=== PATIENT | female | born 1980 | race Caucasian/White ===

== ENCOUNTER 2019-09-29 10:19 | Emergency (ER) | payer OTHER ==
[~2019-09-29] VITALS: Ht 154.9 cm; Wt 88.0 kg
[2019-09-29 10:23] VITALS: BP 133/84
--- NOTE | 2019-09-29 10:51 | NUR ---
PT SENT HERE FROM [facility] [employer] [facility], "TO HAVE METHOTREXATE SHOT" PT STATES SHE ALREADY HAD A PELVIC EXAM AT MD OFFICE. PT DENIES ABD PAIN.
[2019-09-29 12:39] LABS: BASOPHILS # (AUTO) 0.05 x10^3/uL (0-0.1); BASOPHILS % (AUTO) 1 % (0-1); EOSINOPHILS # (AUTO) 0.38 x10^3/uL (0-0.4); EOSINOPHILS % (AUTO) 4 % (1-7); LYMPHOCYTES # (AUTO) 1.63 x10^3/uL (1-3.4); LYMPHOCYTES % (AUTO) 16 % (22-44); MD NO; MEAN CORPUSCULAR HEMOGLOBIN 29.2 pg (27.0-34.8); MEAN CORPUSCULAR HGB CONC 33.2 g/dL (32.4-35.8); MEAN CORPUSCULAR VOLUME 88.1 fL (80-100); MEAN PLATELET VOLUME 9.3 fL (7.4-10.4); MONOCYTES # (AUTO) 0.69 x10^3/uL (0.2-0.8); MONOCYTES % (AUTO) 7 % (2-9); NEUTROPHILS # (AUTO) 7.47 x10^3/uL (1.8-6.8); NEUTROPHILS % (AUTO) 73 % (42-75); PLATELET COUNT 320 x10^3/uL (130-400); RED BLOOD COUNT 5.12 x10^6/uL (3.82-5.3); RED CELL DISTRIBUTION WIDTH 12.8 % (9.6-15.2)
[2019-09-29 12:51] LABS: ALANINE AMINOTRANSFERASE 20 U/L (12-78); ALBUMIN 4.2 g/dL (3.4-5.0); ANION GAP 6 mmol/L (5-15); CALCIUM 9.5 mg/dL (8.5-10.1); CHLORIDE 106 mmol/L (98-107); CREATININE 0.95 mg/dL (0.55-1.02)
[2019-09-29 12:55] LABS: ALKALINE PHOSPHATASE 84 U/L (45-117); BILIRUBIN,TOTAL 0.3 mg/dL (0.2-1.0); TOTAL PROTEIN 8.4 g/dL (6.4-8.2)
--- NOTE | 2019-09-29 13:09 | NUR ---
SPOKE WITH REGARDING ORDER FOR METHOTREXATE, APPARENTLY WE ARE AWAITING A FAX FROM DR NIXON OFFICE. CALL TO PTS OFFICE TO EXPEDITE FA, SPOKE TO OFFICE STAFF
[2019-09-29] MEDS ORDERED: METHOTREXATE IM ONE (13:30)
--- NOTE | 2019-09-29 13:45 | NUR ---
BREAK RN: CALLED DANIEL BOSTON, [employer] MANAGER ON ONCOLOGY FOR ASSISTANCE WITH MEDICATION. SHE WILL COME DOWN AND ADMINISTER.
--- NOTE | 2019-09-29 15:16 | NUR ---
ONC RNS ADMIN MED, WAIT FOR 20MIN TO VERIFY NO ADVERSE REACTION PER RN RECOMMENATION, PT TO THEN DC
--- NOTE | 2019-09-29 15:23 | NUR ---
PT LEFT WITHOUT THIS RNS ASSESSMENT OF INJECTION SITE. PT LEFT WITHOUT ALL BELONGINGS
== END 2019-09-29 15:32 | disposition home or self-care (01) ==
LOC: ED 12:24
DX: O02.1 Missed abortion (principal); Z32.01 Encounter for pregnancy test, result positive
CPT/HCPCS: 36415; 80053; 84702; 85025; 99283; J9250

== ENCOUNTER 2019-12-09 13:11 | Emergency (ER) | payer OTHER ==
[~2019-12-09] VITALS: Ht 157.5 cm; Wt 81.7 kg
--- NOTE | 2019-12-09 13:54 | NUR ---
pa in room for assessment. pt denies pain. vss. call lopez in reach. as
[2019-12-09 14:14] LABS: BASOPHILS # (AUTO) 0.05 x10^3/uL (0-0.1); BASOPHILS % (AUTO) 1 % (0-1); EOSINOPHILS # (AUTO) 0.24 x10^3/uL (0-0.4); EOSINOPHILS % (AUTO) 2 % (1-7); LYMPHOCYTES # (AUTO) 1.47 x10^3/uL (1-3.4); LYMPHOCYTES % (AUTO) 14 % (22-44); MD NO; MEAN CORPUSCULAR HEMOGLOBIN 28.2 pg (27.0-34.8); MEAN CORPUSCULAR HGB CONC 33.2 g/dL (32.4-35.8); MEAN CORPUSCULAR VOLUME 85.1 fL (80-100); MEAN PLATELET VOLUME 9.4 fL (7.4-10.4); MONOCYTES # (AUTO) 0.58 x10^3/uL (0.2-0.8); MONOCYTES % (AUTO) 6 % (2-9); NEUTROPHILS # (AUTO) 8.04 x10^3/uL (1.8-6.8); NEUTROPHILS % (AUTO) 77 % (42-75); PLATELET COUNT 350 x10^3/uL (130-400); RED BLOOD COUNT 4.86 x10^6/uL (3.82-5.3); RED CELL DISTRIBUTION WIDTH 14.2 % (9.6-15.2)
--- NOTE | 2019-12-09 14:17 | NUR ---
pt to us. stable. as
[2019-12-09 14:24] LABS: ALBUMIN 3.5 g/dL (3.4-5.0); ANION GAP 8 mmol/L (5-15); CALCIUM 9.1 mg/dL (8.5-10.1); CHLORIDE 109 mmol/L (98-107)
[2019-12-09 14:29] LABS: CREATININE 0.69 mg/dL (0.55-1.02)
--- NOTE | 2019-12-09 14:49 | NUR ---
pt back from us. us shows no gestational sac. recheck. as
[2019-12-09 15:22] VITALS: BP 116/67
== END 2019-12-09 15:23 | disposition home or self-care (01) ==
LOC: ED 15:20
DX: O03.9 Complete or unspecified spontaneous abortion without complication (principal)
CPT/HCPCS: 36415; 76801; 80048; 82040; 84702; 85025; 99284

== ENCOUNTER 2020-07-09 07:57 | Emergency (ER) | payer OTHER ==
[~2020-07-09] VITALS: Ht 154.9 cm; Wt 86.6 kg
--- NOTE | 2020-07-09 08:04 | NUR ---
GENERAL ACCOUNTING CLERK: EKG DONE IN TRIAGE
--- NOTE | 2020-07-09 08:21 | NUR ---
TELEPHONE CALL TO OB, STATES THEY WILL COME DOWN TO LISTEN TO HEART TONES.
[2020-07-09] MEDS ORDERED: DIPHENHYDRAMINE 25 MG CAPSULE PO ONE (08:30)
--- NOTE | 2020-07-09 08:36 | NUR ---
THEA WESTFALL RN IN ROOM FOR HEART TONES. LAB AT BEDSIDE.
[2020-07-09 08:42] VITALS: BP 121/72
--- NOTE | 2020-07-09 08:45 | NUR ---
XR IN ROOM.
[2020-07-09 08:53] LABS: BASOPHILS % (AUTO) 1 % (0-1); EOSINOPHILS % (AUTO) 2 % (1-7); LYMPHOCYTES % (AUTO) 16 % (22-44); MEAN CORPUSCULAR HEMOGLOBIN 29.1 pg (27.0-34.8); MEAN CORPUSCULAR HGB CONC 33.3 g/dL (32.4-35.8); MEAN PLATELET VOLUME 9.1 fL (7.4-10.4); MONOCYTES % (AUTO) 6 % (2-9); NEUTROPHILS % (AUTO) 76 % (42-75); PLATELET COUNT 241 x10^3/uL (130-400)
[2020-07-09 08:56] LABS: MD NO
--- NOTE | 2020-07-09 08:56 | NUR ---
PER THEA OB RN HEART TONES AUSCULTATED, LT SIDE MIDLINE HR APPROX 150, RLQ HR APPOX 130. UPDATED.
--- NOTE | 2020-07-09 08:58 | NUR ---
XR IN ROOM AGAIN.
[2020-07-09 09:04] LABS: ALBUMIN 2.9 g/dL (3.4-5.0); ANION GAP 5 mmol/L (5-15); CALCIUM 8.9 mg/dL (8.5-10.1); CHLORIDE 112 mmol/L (98-107)
--- NOTE | 2020-07-09 09:30 | NUR ---
PT AMBULATED TO THE BR W/ A STEADY GAIT.
--- NOTE | 2020-07-09 09:45 | NUR ---
ALL TESTS RESULTED. PT IS UP FOR RECHECK AT THIS TIME.
--- NOTE | 2020-07-09 09:57 | NUR ---
Patient given discharge instructions and they have confirmed that they understand the instructions. Patient ambulatory with steady gait.
== END 2020-07-09 10:20 | disposition home or self-care (01) ==
LOC: ED 09:10
DX: O26.892 Other specified pregnancy related conditions, second trimester (principal); R06.00 Dyspnea, unspecified; F41.1 Generalized anxiety disorder; R07.89 Other chest pain; R00.0 Tachycardia, unspecified; Z3A.17 17 weeks gestation of pregnancy
CPT/HCPCS: 36415; 71045; 80048; 82040; 85025; 93005; 99285; Q0163

== ENCOUNTER 2020-10-02 11:18 | Outpatient (CLI) | payer OTHER ==
[~2020-10-02] VITALS: Ht 154.9 cm; Wt 91.3 kg
[2020-10-02 11:52] VITALS: BP 127/71
[2020-10-02] MEDS ORDERED: PREN1TAB10 PO (12:13)
[2020-10-02] MEDS ORDERED: ASPI-515 PO (12:13)
== END 2020-10-02 12:37 | disposition home or self-care (01) ==
LOC: LDOP 11:18
PROVIDERS: ATTEND Obstetrics & Gynecology
DX: O09.893 Supervision of other high risk pregnancies, third trimester (principal); Z3A.29 29 weeks gestation of pregnancy
CPT/HCPCS: 59025

== ENCOUNTER 2020-11-24 06:03 | Inpatient (IN) | payer OTHER ==
[~2020-11-24] VITALS: Ht 154.9 cm; Wt 95.5 kg
[~2020-11-24 06:03] MED LIST: ASPI-963 PO; PREN1TAB10 PO
[2020-11-24] MEDS ORDERED: ONDANSETRON 2MG/ML, 2ML IVPush PRN (07:00)
[2020-11-24] MEDS ORDERED: OXYTOCIN 30U/ 0.9% NaCL 500ML 500 ML IV ONE (07:00)
[2020-11-24] MEDS ORDERED: FENTANYL PF 100 MCG/2ML IVPush PRN (07:00)
[2020-11-24] MEDS ORDERED: FENTANYL PF 100 MCG/2ML IV PRN (07:00)
[2020-11-24] MEDS ORDERED: TERBUTALINE 1 MG/ML, 1ML SQ PRN (07:00)
[2020-11-24] MEDS ORDERED: OXYTOCIN 30U/ 0.9% NaCL 500ML 500 ML IV PRN (07:00)
[2020-11-24] MEDS ORDERED: TERBUTALINE 1 MG/ML, 1ML IVPush PRN (07:00)
[2020-11-24 07:08] LABS: BASOPHILS % (AUTO) 1 % (0-1); EOSINOPHILS % (AUTO) 3 % (1-7); LYMPHOCYTES % (AUTO) 17 % (22-44); MEAN CORPUSCULAR HEMOGLOBIN 31.1 pg (27.0-34.8); MEAN CORPUSCULAR HGB CONC 34.5 g/dL (32.4-35.8); MEAN PLATELET VOLUME 10.4 fL (7.4-10.4); MONOCYTES % (AUTO) 9 % (2-9); NEUTROPHILS % (AUTO) 70 % (42-75); PLATELET COUNT 134 x10^3/uL (130-400); RED BLOOD COUNT 4.53 x10^6/uL (3.82-5.3); RED CELL DISTRIBUTION WIDTH 14.4 % (9.6-15.2)
[2020-11-24] MEDS ORDERED: OXYTOCIN 30U/ 0.9% NaCL 500ML 500 ML ONE ×2 (07:08→18:53)
[2020-11-24] MEDS ORDERED: MISOPROSTOL 200 MCG TABLET ONE (07:09)
[2020-11-24] MEDS ORDERED: LIDOCAINE 1%, 20ML ONE (07:09)
[2020-11-24 07:10] LABS: MD NO
[2020-11-24] MEDS ORDERED: NEWBORN KIT ONE (07:10)
[2020-11-24] MEDS ORDERED: LACTATED RINGERS 1,000 ML IVBOLUS PRN (08:00)
[2020-11-24] MEDS ORDERED: FENTANYL/BUPIV./NS/PF 250 ML EPIDCONT SCH (08:00)
[2020-11-24] MEDS ORDERED: NALOXONE 0.4 MG/ML, 1ML IVPush PRN (08:00)
[2020-11-24] MEDS ORDERED: EPHEDRINE 50 MG/ML, 1ML IVPush PRN (08:00)
[2020-11-24] MEDS ORDERED: LACTATED RINGERS 1,000 ML IV SCH (08:00)
[2020-11-24] MEDS ORDERED: BUPIVACAINE/PF 0.25% ONE (12:10)
[2020-11-24] MEDS ORDERED: ONDANSETRON 2MG/ML, 2ML IV PRN (19:00)
[2020-11-24] MEDS ORDERED: ACETAMINOPHEN 325 MG TABLET PO PRN (19:00)
[2020-11-24] MEDS ORDERED: MISOPROSTOL 200 MCG TABLET PR PRN (19:00)
[2020-11-24] MEDS ORDERED: SIMETHICONE 80 MG CHEW TAB PO PRN (19:00)
[2020-11-24] MEDS ORDERED: METHYLERGONOVINE 0.2 MG/ML IM PRN (19:00)
[2020-11-24] MEDS ORDERED: OXYTOCIN 10 UNITS/ML, 1ML IM PRN (19:00)
[2020-11-24] MEDS ORDERED: CARBOPROST TROMETHAMINE 250 MCG/ML, 1ML IM PRN (19:00)
[2020-11-24] MEDS: OXYTOCIN 30U/ 0.9% NaCL 500ML 500 ML IV SCH (19:00)
[2020-11-24 21:05] VITALS: BP 115/74
[2020-11-24] MEDS: IBUPROFEN 600 MG TABLET PO PRN (22:04)
[2020-11-24] MEDS: HYDROcodone/APAP 5/325 TABLET PO PRN (22:04)
[2020-11-25 00:45] VITALS: BP 100/65
[2020-11-25 02:06] LABS: BASOPHILS % (AUTO) 1 % (0-1); EOSINOPHILS % (AUTO) 1 % (1-7); LYMPHOCYTES % (AUTO) 10 % (22-44); MEAN CORPUSCULAR HGB CONC 34.7 g/dL (32.4-35.8); MEAN PLATELET VOLUME 10.9 fL (7.4-10.4); MONOCYTES % (AUTO) 6 % (2-9); NEUTROPHILS % (AUTO) 83 % (42-75); PLATELET COUNT 129 x10^3/uL (130-400); RED BLOOD COUNT 4.32 x10^6/uL (3.82-5.3)
[2020-11-25 02:07] LABS: MD NO
[2020-11-25 04:40] VITALS: BP 96/62
[2020-11-25] MEDS: HYDROcodone/APAP 5/325 TABLET PO PRN ×4 (04:59→17:27)
[2020-11-25] MEDS: IBUPROFEN 600 MG TABLET PO PRN ×2 (05:00→17:27)
[2020-11-25] MEDS: OXYTOCIN 30U/ 0.9% NaCL 500ML 500 ML IV SCH (05:00)
[2020-11-25 07:30] VITALS: BP 117/75
[2020-11-25] MEDS: DOCUSATE 100 MG CAPSULE PO PRN ×2 (09:10→20:18)
[2020-11-25] MEDS: PRENATAL VIT/IRON/FA 1 EACH TABLET PO SCH (09:11)
[2020-11-25 12:12] VITALS: BP 111/72
[2020-11-25 17:33] VITALS: BP 118/80
[2020-11-25 19:23] VITALS: BP 114/70
[2020-11-25] MEDS ORDERED: DIPH,PERTUSS(ACELL),TET VAC/PF NC IM-VACC ONE (19:30)
[2020-11-26] MEDS: OXYTOCIN 30U/ 0.9% NaCL 500ML 500 ML IV SCH (01:00)
[2020-11-26] MEDS: IBUPROFEN 600 MG TABLET PO PRN ×2 (01:08→08:53)
[2020-11-26] MEDS: HYDROcodone/APAP 5/325 TABLET PO PRN ×2 (01:09→06:33)
[2020-11-26 08:30] VITALS: BP 124/84
[2020-11-26] MEDS: PRENATAL VIT/IRON/FA 1 EACH TABLET PO SCH (08:53)
[2020-11-26] MEDS: DOCUSATE 100 MG CAPSULE PO PRN (08:53)
== END 2020-11-26 10:15 | disposition home or self-care (01) | DRG 806 ==
LOC: LDIP 06:03 → 2NW 20:50
PROVIDERS: ADMIT Obstetrics & Gynecology; ATTEND Obstetrics & Gynecology
PROC: 10907ZC Drainage of Amniotic Fluid, Therapeutic from Products of Conception, Via Natural or Artificial Opening (ICD-10-PCS; principal; 2020-11-25)
PROC: 10E0XZZ Delivery of Products of Conception, External Approach (ICD-10-PCS; 2020-11-25)
PROC: 3E033VJ Introduction of Other Hormone into Peripheral Vein, Percutaneous Approach (ICD-10-PCS; 2020-11-25)
DX: O30.003 Twin pregnancy, unspecified number of placenta and unspecified number of amniotic sacs, third trimester (principal); O44.43 Low lying placenta NOS or without hemorrhage, third trimester; Z37.2 Twins, both liveborn; O30.043 Twin pregnancy, dichorionic/diamniotic, third trimester; F41.0 Panic disorder [episodic paroxysmal anxiety]; O32.8XX0 Maternal care for other malpresentation of fetus, not applicable or unspecified; O69.81X0 Labor and delivery complicated by cord around neck, without compression, not applicable or unspecified; O99.344 Other mental disorders complicating childbirth; Z3A.37 37 weeks gestation of pregnancy
CPT/HCPCS: 36415; 85025; 86592; 86850; 86900; 88307; 90715; G0378; J2590; J7120; U0003